=== PATIENT | female | born 1985 | race American Indian/Alaskan Native ===

== ENCOUNTER 2021-07-25 05:18 | Emergency (ER) | payer BC, MEDICAID ==
[2021-07-25 05:51] VITALS: BP 180/118
[2021-07-25] MEDS ORDERED: IBUPROFEN 600 MG TAB PO ONE (07:11)
--- NOTE | 2021-07-25 07:15 | Emergency Department Report ---
ED Fall HPI - General Chief Complaint: Dental/Oral Stated Complaint: SWOLLEN CHIN Time Seen by Provider: 07/25/21 07:03 Source: patient Mode of arrival: Ambulatory - History of Present Illness Initial Comments: The patient was evaluated in the emergency department for symptoms described in the history of present illness. He/she was evaluated in the context of the global COVID-19 pandemic, which necessitated consideration that the patient might be at risk for infection with the virus that causes COVID-19. Institutional protocols and algorithms that pertain to the evaluation of patients at risk for COVID-19 are in a state of rapid change based on information released by regulatory bodies including the CDC and federal and state organizations. These policies and algorithms were followed during the patient's care in the emergency department. Please note that these policies, procedures and recommendations changed on a rapid basis. 35-year-old -[place] female presents to the emergency room complaining of lower jaw and chin swelling status post fall on . Patient states that she was drinking alcohol and had fallen when she was going to the bathroom from her bed. Patient denies any loss of consciousness. Patient denies any broken teeth. Patient denies any headache. She does have a history of hypertension is currently on blood pressure medicine and a history of depression is on Celexa. States that she has been taking Tylenol for pain. States that it is difficult to open her mouth very wide. MD Complaint: fall Onset/Timin -: days(s) When Fall Occurred: recurrent falls (2 days ago) Place Fall Occurred: home Loss of Consciousness: none Prolonged Down Time?: no Symptoms Prior to Fall: none Location: mouth (Chin) Severity scale (0 -10): 8 Quality: sharp, stabbing, aching Context: tripped/slipped Associated Symptoms: denies: headache, neck pain, numbness, weakness, chest paint, shortness of breath, abdominal pain, hematuria, unable to walk, lightheaded, vertigo, confusion - Related Data Previous Rx's Medication Instructions Recorded Last Taken Type Ibuprofen [Motrin 800 MG tab] 800 mg PO Q8HR PRN #15 tablet 07/25/21 Unknown Rx traMADoL [Ultram 50 MG tab] 50 mg PO Q6HR PRN #12 tablet 07/25/21 Unknown Rx Allergies Allergy/AdvReac Type Severity Reaction Status Date / Time No Known Allergies Allergy Unverified 07/25/21 05:50 ED Review of Systems ROS: Stated complaint: SWOLLEN CHIN Other details as noted in HPI Comment: All other systems reviewed and negative ED Past Medical Hx - Social History Smoking Status: Never Smoker Substance Use Type: None - Medications Home Medications: Home Medications Medication Instructions Recorded Confirmed Last Taken Type Ibuprofen [Motrin 800 MG tab] 800 mg PO Q8HR PRN #15 tablet 07/25/21 Unknown Rx traMADoL [Ultram 50 MG tab] 50 mg PO Q6HR PRN #12 tablet 07/25/21 Unknown Rx ED Physical Exam - General Limitations: No Limitations General appearance: alert, in no apparent distress - Head Head exam: Present: atraumatic, normocephalic - Eye Eye exam: Present: normal appearance - ENT ENT exam: Present: mucous membranes moist, other (Step-off bilateral mandible) - Neck Neck exam: Present: normal inspection, full ROM - Respiratory Respiratory exam: Present: normal lung sounds bilaterally. Absent: chest wall tenderness, accessory muscle use - Cardiovascular Cardiovascular Exam: Present: tachycardia - Extremities Exam Extremities exam: Present: normal inspection - Back Exam Back exam: Present: normal inspection - Neurological Exam Neurological exam: Present: alert, oriented X3, normal gait - Psychiatric Psychiatric exam: Present: normal affect, normal mood - Skin Skin exam: Present: warm, dry, intact, normal color. Absent: rash ED Course Vital Signs 07/25/21 05:47 Pulse Rate 102 H Respiratory 18 Rate Blood Pressure 180/118 O2 Sat by Pulse 100 Oximetry - Reevaluation(s) Reevaluation #1: 07/25/21 08:[address] Haleigh reports that she had to warm machine and is coming to get her. ED Medical Decision Making - Radiology Data Radiology results: report reviewed dy Comments [facility] [address] [place] [address] Cat Scan Report Signed Patient: KAYLEE BOLTON MR#: [id number] : 1985 Acct:[id number] Age/Sex: 35 / F ADM Date: 07/25/21 Loc: ED Attending Dr: Ordering Physician: KIM MORSE MD Date of Service: 07/25/21 Procedure(s): CT head/brain wo con Accession Number(s): [id number] cc: KIM MORSE MD CT HEAD WITHOUT CONTRAST INDICATION: jaw pain. TECHNIQUE: All CT scans at this location are performed using CT dose reduction for ALARA by means of automated exposure control. COMPARISON: None available. FINDINGS: HEMORRHAGE: None. EXTRA-AXIAL SPACES: Normal in size and morphology for the patient's age. VENTRICULAR SYSTEM: Normal in size and morphology for the patient's age. BRAIN PARENCHYMA: No acute findings. MIDLINE SHIFT OR HERNIATION: None. ORBITS: Normal as visualized. SOFT TISSUES OF HEAD: Normal. CALVARIUM: Normal. VISUALIZED PARANASAL SINUSES AND MASTOID AIR CELLS: Clear. ADDITIONAL FINDINGS: None. IMPRESSION: 1. No acute intracranial abnormality. Signer Name: Jt Tierney MD Signed: 07/25/2021 8:45 AM Workstation Name: [id number] Transcribed By: ROBERTO Dictated By: Jt Tierney MD Electronically Authenticated By: Jt Tierney MD Signed Date/Time: 07/25/21844 DD/ 2 TD/TT: CENTER Approval Date 2021-07-25 08:49:50 Other Patient ID My Comment(s) Study Comments [facility] [address] [place] [address] Cat Scan Report Signed Patient: KAYLEE BOLTON MR#: [id number] : 1985 Acct:[id number] Age/Sex: 35 / F ADM Date: 07/25/21 Loc: ED Attending Dr: Ordering Physician: KIM MORSE MD Date of Service: 07/25/21 Procedure(s): CT facial bones wo con Accession Number(s): [id number] cc: KIM MORSE MD CT MAXILLOFACIAL WITHOUT CONTRAST INDICATION: jaw pain. TECHNIQUE: All CT scans at this location are performed using CT dose reduction for ALARA by means of automated exposure control. COMPARISON: None available. FINDINGS: FACIAL BONES: No fracture or other significant abnormality. PARANASAL SINUSES: No significant abnormality. ORBITS: No significant abnormality. VISUALIZED INTRACRANIAL STRUCTURES: No significant abnormality. ADDITIONAL FINDINGS: There is edema within the subcutaneous soft tissues of the chin. IMPRESSION: 1. No significant skeletal abnormality. Mild edema within the subcutaneous fat of the midline chin. 2 the lower lip. Signer Name: Jt Tierney MD Signed: 07/25/2021 8:43 AM Workstation Name: [id number] Transcribed By: ROBERTO Dictated By: Jt Tierney MD Electronically Authenticated By: Jt Tierney MD Signed Date/Time: 07/25/21842 DD/ 9 TD/TT: - Medical Decision Making 35-year-old -[place] female presents to the emergency room complaining of lower jaw and chin swelling status post fall on . Patient states that she was drinking alcohol and had fallen when she was going to the bathroom from her bed. Patient denies any loss of consciousness. Patient denies any broken teeth. Patient denies any headache. She does have a history of hypertension is currently on blood pressure medicine and a history of depression is on Celexa. States that she has been taking Tylenol for pain. States that it is difficult to open her mouth very wide. CT face and head ordered by ER attending Dr. Morse. Ibuprofen 600 mg for pain management has been ordered. Critical care attestation.: If time is entered above; I have spent that time in minutes in the direct care of this critically ill patient, excluding procedure time. ED Disposition Clinical Impression: Facial trauma Qualifiers: Encounter type: initial encounter Qualified Code(s): S09.93XA - Unspecified injury of face, initial encounter Fall Qualifiers: Encounter type: initial encounter Qualified Code(s): W19.XXXA - Unspecified fall, initial encounter Disposition: HOME / SELF CARE / HOMELESS Is pt being admited?: No Does the pt Need Aspirin: No Condition: Stable Additional Instructions: CT of your face and head are negative for any acute fractures or abnormalities. I recommend ibuprofen and Tylenol for pain. Prescriptions: Ibuprofen [Motrin 800 MG tab] 800 mg PO Q8HR PRN #15 tablet PRN Reason: Pain , Severe (7-10) traMADoL [Ultram 50 MG tab] 50 mg PO Q6HR PRN #12 tablet PRN Reason: Pain Referrals: [facility] [Provider Group] - 3-5 Days Forms: Work/School Release Form(ED) Time of Disposition: 09:01
--- NOTE | 2021-07-25 08:48 | Cat Scan Report ---
CT MAXILLOFACIAL WITHOUT CONTRAST INDICATION: jaw pain. TECHNIQUE: All CT scans at this location are performed using CT dose reduction for ALARA by means of automated e xposure control. COMPARISON: None available. FINDINGS: FACIAL BONES: No fracture or other significant abnormality. PARANASAL SINUSES: No significant abnormality. ORBITS: No significant abnormality. VISUALIZED INTRACRANIAL STRUCTURES: No significant abnormality. ADDITIONAL FINDINGS: There is edema within the subcutaneous soft tissues of the chin. IMPRESSION: 1. No significant skeletal abnormality. Mild edema within the subcutaneous fat of the midline chin. 2 the lower lip. Signer Name: Jt Tierney MD Signed: 07/25/2021 8:43 AM Workstation Name: [id number]
--- NOTE | 2021-07-25 08:49 | Cat Scan Report ---
CT HEAD WITHOUT CONTRAST INDICATION: jaw pain. TECHNIQUE: All CT scans at this location are performed using CT dose reduction for ALARA by means of automated e xposure control. COMPARISON: None available. FINDINGS: HEMORRHAGE: None. EXTRA-AXIAL SPACES: Normal in size and morphology for the patient's age. VENTRICULAR SYSTEM: Normal in size and morphology for the patient's age. BRAIN PARENCHYMA: No acute findings. MIDLINE SHIFT OR HERNIATION: None. ORBITS: Normal as visualized. SOFT TISSUES OF HEAD: Normal. CALVARIUM: Normal. VISUALIZED PARANASAL SINUSES AND MASTOID AIR CELLS: Clear. ADDITIONAL FINDINGS: None. IMPRESSION: 1. No acute intracranial abnormality. Signer Name: Jt Tierney MD Signed: 07/25/2021 8:45 AM Workstation Name: [id number]
== END 2021-07-25 09:25 | disposition home or self-care (01) ==
LOC: ED 05:18
DX: S09.93XA Unspecified injury of face, initial encounter (principal); W19.XXXA Unspecified fall, initial encounter; Y93.89 Activity, other specified; Y92.89 Other specified places as the place of occurrence of the external cause; Y99.8 Other external cause status
CPT/HCPCS: 70450; 70486; 99283

== ENCOUNTER 2022-06-18 17:52 | Emergency (ER) | payer OTHER, MEDICAID ==
[2022-06-18] MEDS ORDERED: KETOROLAC 30 MG/1 ML INJ IV ONE (22:46)
[2022-06-18] MEDS ORDERED: dexAMETHasone 20 MG/5 ML VIAL IV ONE (22:46)
[2022-06-18] MEDS ORDERED: KETOROLAC 10 MG TAB PO ONE (23:12)
[2022-06-18] MEDS ORDERED: predniSONE 20 MG TAB PO ONE (23:12)
[2022-06-18] MEDS ORDERED: FAMOTIDINE 20 MG TAB PO ONE (23:14)
[2022-06-18 23:27] LABS: Hematocrit 34.2 % (30.3-42.9); Hemoglobin 11.6 gm/dl (10.1-14.3); Mean Corpuscular HGB Conc 34 % (30-34); Mean Corpuscular Volume 102 fl (79-97); Platelet Count 226 K/mm3 (140-440); Red Blood Count 3.37 M/mm3 (3.65-5.03)
[2022-06-18 23:47] LABS: Mucus,Urine 3+ /HPF
[2022-06-18 23:52] LABS: Color,Urine Yellow (Yellow)
[2022-06-18 23:53] LABS: Alanine Aminotransferase 60 units/L (7-56); Albumin 4.4 g/dL (3.9-5); BUN/Creatinine Ratio 17; Blood Urea Nitrogen 5 mg/dL (7-17); Calcium 8.1 mg/dL (8.4-10.2); Hemolysis Index 18
[2022-06-19 00:23] LABS: Total Cells Counted 100
[2022-06-19 00:24] LABS: Anisocytosis 2+; Hypochromasia 1+; Poikilocytosis 1+; Spherocytes 2+
--- NOTE | 2022-06-19 00:32 | XRay Report ---
CHEST 2 VIEWS INDICATION / CLINICAL INFORMATION: Chest pain. COMPARISON: One view of the chest from 03/24/2020. FINDINGS: SUPPORT DEVICES: None. HEART / MEDIASTINUM: No significant abnormality. LUNGS / PLEURA: No significant pulmonary abnormality. No significant pleural effusion. No pneumothora x. ADDITIONAL FINDINGS: No significant additional findings. IMPRESSION: 1. No acute abnormality of the chest. Signer Name: Shakir Dillard MD Signed: 06/19/2022 12:28 AM Workstation Name: [id number]
[2022-06-19 00:46] VITALS: BP 182/117
--- NOTE | 2022-06-19 01:16 | Ultrasound Report ---
ULTRASOUND ABDOMEN, LIMITED (RIGHT UPPER QUADRANT) INDICATION: Unspecified abdominal pain. COMPARISON: MRI abdomen without contrast from 03/22/2022. Limited abdominal ultrasound from 03/20/2022. FINDINGS: Pancreas: Visualized portion shows no significant abnormality. Liver: Normal in size, measuring 13 cm, with generalized increased echotexture. No suspicious liver l esions. The portal vein appears patent. A portal venous waveform was not acquired. Gallbladder: Interval cholecystectomy. No significant abnormality along the gallbladder fossa. Bile ducts: No significant abnormality. Common Bile Duct measures 6 mm. Free fluid: None. Additional Findings: None. IMPRESSION: 1. No acute findings to explain the patient's abdominal pain. 2. Increased hepatic echotexture, most commonly representing steatosis. Signer Name: Shakir Dillard MD Signed: 06/19/2022 1:11 AM Workstation Name: [id number]
--- NOTE | 2022-06-19 01:54 | Cat Scan Report ---
CT ABDOMEN AND PELVIS WITHOUT CONTRAST INDICATION / CLINICAL INFORMATION: Right upper quadrant and right flank pain. TECHNIQUE: Axial CT images were obtained through the abdomen and pelvis without IV contrast. All CT scans at [facility] location are performed using CT dose reduction for ALARA by means of automated exposure control. COMPARISON: Limited abdominal ultrasound performed today. MRCP performed on 03/22/2022. FINDINGS: LOWER CHEST: No significant abnormality. LIVER: Marked steatosis is noted without other significant abnormalities. GALLBLADDER: Prior cholecystectomy. BILE DUCTS: No significant abnormality. PANCREAS: There is mild peripancreatic edema without other significant abnormalities. SPLEEN: No significant abnormality. ADRENALS: No significant abnormality. RIGHT KIDNEY/URETER: No significant abnormality. LEFT KIDNEY/URETER: No significant abnormality. STOMACH/SMALL BOWEL: Mild thickening of the second and third portions of the duodenum is seen with mi ld surrounding inflammation. No other significant abnormality. COLON: Nonspecific mild perirectal fat stranding is seen without other significant abnormalities. APPENDIX: No significant abnormality. PERITONEUM: No free fluid. No free air. No fluid collection. LYMPH NODES: No significant adenopathy. VASCULATURE: No significant abnormality. URINARY BLADDER: No significant abnormality. REPRODUCTIVE ORGANS: No significant abnormality. There is expected positioning of an IUD. ADDITIONAL FINDINGS: None. BONES: No significant abnormality IMPRESSION: Mild acute pancreatitis and/or duodenitis without other acute findings to explain the patient's pain. Signer Name: Shakir Dillard MD Signed: 06/19/2022 1:50 AM Workstation Name: [id number]
--- NOTE | 2022-06-19 02:45 | Emergency Department Report ---
ED Abdominal Pain HPI - General Chief Complaint: Abdominal Pain Stated Complaint: STOMACH PAIN Source: patient Mode of arrival: Ambulatory Limitations: No Limitations - History of Present Illness Initial Comments: Patient is a 36-year-old female with history of hypertension and who is 2 weeks status postcholecystectomy procedure presents to the ED with complaint of acute onset persistent right lateral rib pain, right flank pain that radiates to the right sided mid posterior thoracic area for the last 3 weeks. Patient states that this pain has been constant and persistent. Patient states that the pain is especially worse with movement or palpation of the area. Patient denies fever, chills, cough, dysuria, urinary frequency and urgency, vaginal bleeding, vaginal discharge, hematemesis, nausea and vomiting or diarrhea, chest pain, cough, traumatic injury or heavy lifting, and shortness of breath. MD Complaint: abdominal pain (right flank), flank pain (right ), other (right mid-posterior thoracic pain) -: Gradual Location: RUQ, R flank Radiation: R flank, chest (right lateral chest wall pain) Migration to: no migration Severity: moderate Severity scale (0 -10): 6 Quality: aching, sharp Consistency: constant Improves With: nothing Worsens With: movement Context: other (2 weeks s/p cholecystectomy) Associated Symptoms: denies other symptoms. denies: nausea, vomiting, diarrhea, fever, chills, constipation, hematemesis, melena, hematuria, anorexia, syncope - Related Data Home Medications Medication Instructions Recorded Confirmed Last Taken Escitalopram [Lexapro] 10 mg PO DAILY 03/20/22 03/22/22 Unknown Ferrous Sulfate [Feosol 325 MG tab] 325 mg PO DAILY 03/20/22 03/22/22 Unknown Cyanocobalamin (Vitamin B-12) 1,000 mcg PO QDAY 03/22/22 03/22/22 Unknown [B-12] Multivitamin 1 each PO QDAY 03/22/22 03/22/22 Unknown Previous Rx's Medication Instructions Recorded Last Taken Type Magnesium Oxide [Mag-Ox] 400 mg PO QDAY 30 Days #30 tablet 03/25/22 Unknown Rx Metoprolol [Lopressor TAB] 25 mg PO BID 30 Days #60 tablet 03/25/22 Unknown Rx Potassium Chloride [Klor-Con M20] 20 meq PO DAILY 30 Days #30 tab 03/25/22 Unknown Rx amLODIPine 5 mg PO DAILY 30 Days #30 tab 03/25/22 Unknown Rx oxyCODONE /ACETAMINOPHEN [Percocet 1 tab PO Q6H PRN 3 Days #12 tablet 03/25/22 Unknown Rx 5/325 mg] Ibuprofen [Motrin] 800 mg PO Q8HR PRN #30 tablet 06/19/22 Unknown Rx methOCARBAMOL [Robaxin TAB] 750 mg PO Q8H PRN #30 tab 06/19/22 Unknown Rx traMADoL [Ultram] 50 mg PO Q6HR PRN #10 tablet 06/19/22 Unknown Rx Allergies Allergy/AdvReac Type Severity Reaction Status Date / Time No Known Allergies Allergy Verified 03/22/22 12:21 ED Review of Systems ROS: Stated complaint: STOMACH PAIN Other details as noted in HPI Constitutional: denies: chills, fever Eyes: denies: eye pain, eye discharge, vision change ENT: denies: ear pain, throat pain Respiratory: denies: cough, shortness of breath, wheezing Cardiovascular: chest pain (lateral right rib pain). denies: palpitations Endocrine: no symptoms reported Gastrointestinal: abdominal pain (right flank and right lateral chest wall pain). denies: nausea, vomiting, diarrhea Genitourinary: denies: urgency, dysuria, discharge Musculoskeletal: back pain (right-sided mid posterior thoracic pain). denies: joint swelling, arthralgia Skin: denies: rash, lesions Neurological: denies: headache, weakness, paresthesias Psychiatric: denies: anxiety, depression Hematological/Lymphatic: denies: easy bleeding, easy bruising ED Past Medical Hx - Past Medical History Hx Hypertension: Yes Hx Congestive Heart Failure: No Hx Liver Disease: No Hx Renal Disease: No Hx Seizures: No Hx Asthma: No Additional medical history: Kidney disease - Surgical History Past Surgical History?: Yes Additional Surgical History: Karmen, Gallbladder removal (04/07) - Social History Smoking Status: Unknown if ever smoked - Medications Home Medications: Home Medications Medication Instructions Recorded Confirmed Last Taken Type Escitalopram [Lexapro] 10 mg PO DAILY 03/20/22 03/22/22 Unknown History Ferrous Sulfate [Feosol 325 MG tab] 325 mg PO DAILY 03/20/22 03/22/22 Unknown History Cyanocobalamin (Vitamin B-12) 1,000 mcg PO QDAY 03/22/22 03/22/22 Unknown History [B-12] Multivitamin 1 each PO QDAY 03/22/22 03/22/22 Unknown History Magnesium Oxide [Mag-Ox] 400 mg PO QDAY 30 Days #30 tablet 03/25/22 Unknown Rx Metoprolol [Lopressor TAB] 25 mg PO BID 30 Days #60 tablet 03/25/22 Unknown Rx Potassium Chloride [Klor-Con M20] 20 meq PO DAILY 30 Days #30 tab 03/25/22 Unknown Rx amLODIPine 5 mg PO DAILY 30 Days #30 tab 03/25/22 Unknown Rx oxyCODONE /ACETAMINOPHEN [Percocet 1 tab PO Q6H PRN 3 Days #12 tablet 03/25/22 Unknown Rx 5/325 mg] Ibuprofen [Motrin] 800 mg PO Q8HR PRN #30 tablet 06/19/22 Unknown Rx methOCARBAMOL [Robaxin TAB] 750 mg PO Q8H PRN #30 tab 06/19/22 Unknown Rx traMADoL [Ultram] 50 mg PO Q6HR PRN #10 tablet 06/19/22 Unknown Rx ED Physical Exam - General Limitations: No Limitations General appearance: alert, in no apparent distress - Head Head exam: Present: atraumatic, normocephalic, normal inspection - Eye Eye exam: Present: normal appearance, PERRL, EOMI Pupils: Present: normal accommodation - ENT ENT exam: Present: normal exam, normal orophraynx, mucous membranes moist, TM's normal bilaterally, normal external ear exam - Neck Neck exam: Present: normal inspection, full ROM. Absent: tenderness - Respiratory Respiratory exam: Present: normal lung sounds bilaterally, chest wall tenderness (palpable right lateral rib tenderness). Absent: respiratory distress, accessory muscle use, decreased breath sounds, prolonged expiratory - Cardiovascular Cardiovascular Exam: Present: regular rate, normal rhythm, normal heart sounds. Absent: systolic murmur, diastolic murmur, rubs, gallop - GI/Abdominal GI/Abdominal exam: Present: soft, tenderness (palpable right flank tenderness), normal bowel sounds. Absent: guarding, rebound, hyperactive bowel sounds - Extremities Exam Extremities exam: Present: normal inspection, full ROM, normal capillary refill - Back Exam Back exam: Present: normal inspection, full ROM. Absent: tenderness, CVA tenderness (R), CVA tenderness (L), muscle spasm, paraspinal tenderness, vertebral tenderness - Neurological Exam Neurological exam: Present: alert, oriented X3, CN II-XII intact, normal gait, reflexes normal - Psychiatric Psychiatric exam: Present: normal affect, normal mood - Skin Skin exam: Present: warm, dry, intact, normal color. Absent: rash ED Course Vital Signs 06/18/22 06/19/22 19:01 00:45 Temperature 98.2 F Pulse Rate 92 H 87 Respiratory 16 12 Rate Blood Pressure 188/130 182/117 [Right] O2 Sat by Pulse 98 100 Oximetry ED Medical Decision Making - Lab Data Result diagrams: 06/18/22 23:02 06/18/22 23:02 - Radiology Data Radiology results: report reviewed, image reviewed [facility] [address] [place] [address] Cat Scan Report Signed Patient: KAYLEE BOLTON MR#: [id number] : 1985 Acct:[id number] Age/Sex: 36 / F ADM Date: 06/18/22 Loc: ED Attending Dr: Ordering Physician: JILLIAN PELAYO Date of Service: 06/19/22 Procedure(s): CT abdomen pelvis wo con Accession Number(s): [id number] cc: JILLIAN PELAYO CT ABDOMEN AND PELVIS WITHOUT CONTRAST INDICATION / CLINICAL INFORMATION: Right upper quadrant and right flank pain. TECHNIQUE: Axial CT images were obtained through the abdomen and pelvis without IV contrast. All CT scans at this location are performed using CT dose reduction for ALARA by means of automated exposure control. COMPARISON: Limited abdominal ultrasound performed today. MRCP performed on 03/22/2022. FINDINGS: LOWER CHEST: No significant abnormality. LIVER: Marked steatosis is noted without other significant abnormalities. GALLBLADDER: Prior cholecystectomy. BILE DUCTS: No significant abnormality. PANCREAS: There is mild peripancreatic edema without other significant a bnormalities. SPLEEN: No significant abnormality. ADRENALS: No significant abnormality. RIGHT KIDNEY/URETER: No significant abnormality. LEFT KIDNEY/URETER: No significant abnormality. STOMACH/SMALL BOWEL: Mild thickening of the second and third portions of the duodenum is seen with mild surrounding inflammation. No other significant abnormality. COLON: Nonspecific mild perirectal fat stranding is seen without other significant abnormalities. APPENDIX: No significant abnormality. PERITONEUM: No free fluid. No free air. No fluid collection. LYMPH NODES: No significant adenopathy. VASCULATURE: No significant abnormality. URINARY BLADDER: No significant abnormality. REPRODUCTIVE ORGANS: No significant abnormality. There is expected positioning of an IUD. ADDITIONAL FINDINGS: None. BONES: No significant abnormality IMPRESSION: Mild acute pancreatitis and/or duodenitis without other acute findings to explain the patient's pain. Signer Name: Shakir Dillard MD Signed: 06/19/2022 1:50 AM Workstation Name: [id number] Transcribed By: MN Dictated By: Shakir Dillard MD Electronically Authenticated By: Shakir Dillard MD Signed Date/Time: 06/19/22149 DD/ 6 TD/TT: Print Cancel -- [facility] [address] [place] [address] Ultrasound Report Signed Patient: KAYLEE BOLTON MR#: [id number] : 1985 Acct:[id number] Age/Sex: 36 / F ADM Date: 06/18/22 Loc: ED Attending Dr: Ordering Physician: JILLIAN PELAYO Date of Service: 06/19/22 Procedure(s): US abdomen limited Accession Number(s): [id number] cc: JILLIAN PELAYO ULTRASOUND ABDOMEN, LIMITED (RIGHT UPPER QUADRANT) INDICATION: Unspecified abdominal pain. COMPARISON: MRI abdomen without contrast from 03/22/2022. Limited abdominal ultrasound from 03/20/2022. FINDINGS: Pancreas: Visualized portion shows no significant abnormality. Liver: Normal in size, measuring 13 cm, with generalized increased echotexture. No suspicious liver lesions. The portal vein appears patent. A portal venous waveform was not acquired. Gallbladder: Interval cholecystectomy. No significant abnormality along the gallbladder fossa. Bile ducts: No significant abnormality. Common Bile Duct measures 6 mm. Free fluid: None. Additional Findings: None. IMPRESSION: 1. No acute findings to explain the patient's abdominal pain. 2. Increased hepatic echotexture, most commonly representing steatosis. Signer Name: Shakir Dillard MD Signed: 06/19/2022 1:11 AM Workstation Name: [id number] Transcribed By: MN Dictated By: Shakir Dillard MD Electronically Authenticated By: Shakir Dillard MD Signed Date/Time: 06/19/22110 DD/ 7 TD/TT: [facility] [address] [place] [address] XRay Report Signed Patient: KAYLEE BOLTON MR#: [id number] : 1985 Acct:[id number] Age/Sex: 36 / F ADM Date: 06/18/22 Loc: ED Attending Dr: Ordering Physician: JILLIAN PELAYO Date of Service: 06/18/22 Procedure(s): XR chest routine 2V Accession Number(s): [id number] cc: JILLIAN PELAYO Fluoro Time In Minutes: CHEST 2 VIEWS INDICATION / CLINICAL INFORMATION: Chest pain. COMPARISON: One view of the chest from 03/24/2020. FINDINGS: SUPPORT DEVICES: None. HEART / MEDIASTINUM: No significant abnormality. LUNGS / PLEURA: No significant pulmonary abnormality. No significant pleural effusion. No pneumothorax. ADDITIONAL FINDINGS: No significant additional findings. IMPRESSION: 1. No acute abnormality of the chest. Signer Name: Shakir Dillard MD Signed: 06/19/2022 12:28 AM Workstation Name: [id number] Transcribed By: MN Dictated By: Shakir Dillard MD Electronically Authenticated By: Shakir Dillard MD Signed Date/Time: 06/19/2227 DD/ TD/TT: - Medical Decision Making This is a 36-year-old female with history of hypertension and who is 2 weeks status postcholecystectomy procedure presents to the ED with complaint of acute onset persistent right lateral rib pain, right flank pain that radiates to the right sided mid posterior thoracic area for the last 3 weeks. Patient states that this pain has been constant and persistent. Patient states that the pain is especially worse with movement or palpation of the area. Patient was treated for pain in the ED. Chest x-ray showed no acute cardiopulmonary abnormalities or pneumonitis. The gallbladder ultrasound is unremarkable. The abdomen pelvis CT scan without contrast showed no acute abnormalities. Lab test results were reviewed and showed elevated LFTs including AST of 95, ALT of 60, bilirubin of 1.5 and alk phos of 182, lipase of 70. On reevaluation, patient's pain is well controlled medication. Patient was discharged home on pain medications and advised to follow-up with her primary care physician in 5 to 7 days for reevaluation. Patient was also given a referral to the GI physician Dr. Benjamín Alas for further evaluation. Patient was advised to return to the ED immediately if symptoms get worse. - Differential Diagnosis Kidney stone; pneumonia; GERD; pyelonephritis; cholangitis Critical care attestation.: If time is entered above; I have spent that time in minutes in the direct care of this critically ill patient, excluding procedure time. ED Disposition Clinical Impression: Acute right flank pain, Spasm of thoracic back muscle, Transaminitis Muscle strain of chest wall Qualifiers: Encounter type: initial encounter Qualified Code(s): S29.011A - Strain of muscle and tendon of front wall of thorax, initial encounter Disposition: HOME / SELF CARE / HOMELESS Is pt being admited?: No Does the pt Need Aspirin: No Condition: Stable Instructions: Abdominal Pain (ED), Muscle Cramps and Spasms, [id number], Muscle Strain, [id number], Flank Pain, Adult, [id number], Abdominal Pain, Adult, [id number] Additional Instructions: All lab test results were reviewed and are all nonactionable except for elevated liver enzymes. Chest x-ray showed no acute cardiopulmonary abnormalities or pneumonitis. Gallbladder ultrasound was unremarkable. Abdomen pelvis CT scan without contrast showed no acute abnormalities. Therefore take medication as needed for pain, drink plenty of fluids, follow-up with your primary care physician or GI physician Dr. Benjamín Alas for further evaluation. Return to the ED immediately if symptoms get worse. Prescriptions: Ibuprofen [Motrin] 800 mg PO Q8HR PRN #30 tablet PRN Reason: Pain , Severe (7-10) methOCARBAMOL [Robaxin TAB] 750 mg PO Q8H PRN #30 tab PRN Reason: Muscle Spasm traMADoL [Ultram] 50 mg PO Q6HR PRN #10 tablet PRN Reason: Pain Referrals: BERTHA OSORIO MD [Primary Care Provider] - 3-5 Days BENJAMÍN ALAS MD [Staff Physician] - 3-5 Days Forms: Work/School Release Form(ED) Time of Disposition: 02:51 Print Language: MALAY
== END 2022-06-19 03:08 | disposition home or self-care (01) ==
LOC: ED 17:52
DX: R10.9 Unspecified abdominal pain (principal); S29.011A Strain of muscle and tendon of front wall of thorax, initial encounter; M62.830 Muscle spasm of back; R74.01 Elevation of levels of liver transaminase levels; I10 Essential (primary) hypertension
CPT/HCPCS: 36415; 71046; 74176; 76705; 80053; 81001; 83690; 84703; 85007; 85025; 99284; J1100; J1885